=== PATIENT | male | born 1995 | race Caucasian/White ===

== ENCOUNTER 2019-08-02 10:42 | Emergency (ER) | payer OTHER, SELFPAY ==
[2019-08-02 10:43] VITALS: BP 172/72; PULSE 111; RESP 18; TEMP 37.2; O2SAT 99; BMI 33.5
--- NOTE | 2019-08-02 12:49 | RAD_ITS ---
STUDY: X-RAY CHEST REASON FOR EXAM: Male, 23 years old. Reaction to medication. TECHNIQUE: PA and lateral views of the chest. COMPARISON: None. FINDINGS: The lungs are clear and expanded. Scattered calcified granulomas. There is no demonstrated pleural abnormality. Normal size heart. Normal mediastinum and farzaneh. Normal visualized pulmonary arteries. Normal visualized aortic arch and descending thoracic aorta. Normal visualized thoracic spine. Normal visualized ribs, clavicles, and shoulders. There is no demonstrated abnormality of the visualized soft tissue structures of the upper abdomen. RAD/Chest PA and Lateral IMPRESSION: Normal x-ray examination of the chest. Electronically Signed: Kory Rahamn, at 13:51 EDT , Service support ,
--- NOTE | 2019-08-02 12:52 | ED.VIS.GEN ---
History of Present Illness Chief Complaint: General Illness Informant: Patient Onset: Days Context: Gradual Onset Timing: Continuous Narrative: 23-year-old male with history of anabolic steroid abuse presenting with concerns for medication side effects. Patient was recently started on Wellbutrin and Zoloft 2 weeks ago. Since then he has had worsening fatigue, insomnia and erectile dysfunction. He also notes that he is nauseous and his pupils have been dilated. He denies any urinary symptoms, fever or chills. He is very concerned that this might be because he is using the testosterone injections which he did not tell his prescribing doctor about. Denies any homicidal suicidal ideations. He states he still feeling depressed but that has not changed. Denies any auditory or visual hallucinations. Past Medical History - Allergies and Home Meds Allergies/Adverse Reactions: Allergies No Known Allergies Allergy (Verified 08/02/19 10:43) Primary Care Physician: Thomas Hernandez DO [Primary Care Provider] - Past Medical History: - - Depression Surgical History: noncontributory Lives: With Family Smoking Status: Current every day smoker Review of Systems All systems negative except as indicated General: Reports: Sweats Eyes: Reports: - - Dilated pupils Gastrointestinal: Reports: Nausea Psych: Reports: Depression, - - Insomnia. Denies: Suicidal thoughts, Suicidal ideations Physical Exam Vital Signs/Narrative: Vital Signs Temp Pulse Resp BP Pulse Ox 08/02/19 10:43 99 F 111 H 18 172/72 H 99 Inital Vital Signs reviewed: Yes General: Well nourished, Well developed, No Acute Distress Head: Normocephalic, Atraumatic Eyes: Perrl, EOMI, - - Pupils 7 mm and equally reactive to light ENT: Moist mucous membranes, No rhinorrhea Neck: Supple, Nontender Cardiovascular: Regular rhythm, No murmurs, Tachycardia Respiratory: No distress, CTA bilaterally, Chest nontender Abdomen: Soft, Nontender, Nondistended, Normal bowel sounds Back: Nontender, Normal Inspection Extremities: Nontender, No edema Skin: Normal color, No rash Neurological: Alert, Oriented x3, Cranial nerves II-XII grossly intact, Normal Strength, Normal Sensation Psychological: Normal affect, Depressed, - - Denies homicidal or suicidal ideations, denies auditory hallucinations Diagnostic/Tx/Re-eval Chest X-Ray - ED: 2 View, Read by ED Physician, Read by Radiologist, No Acute Disease Clinical Impression(s) from Imaging Studies Chest X-Ray 08/02/19 12:49 IMPRESSION: Normal x-ray examination of the chest. Electronically Signed: Kory Rahman, at 13:51 EDT , Service support , Laboratory Data 08/02/19 08/02/19 08/02/19 13:10 13:10 13:10 WBC 13.6 H RBC 5.81 Hgb 17.6 H Hct 52.5 MCV 90.4 MCH 30.3 MCHC 33.5 RDW Std Deviation 42.8 RDW Coeff of [place] 12.8 Plt Count 297 MPV 9.6 Immature Gran % (Auto) 0.400 Neut % (Auto) 80.3 H Lymph % (Auto) 11.9 L [place] % (Auto) 6.9 Eos % (Auto) 0.2 Baso % (Auto) 0.3 Absolute Neuts (auto) 10.9 H Absolute Lymphs (auto) 1.62 Nucleated RBC % 0 Sodium 139 Potassium 4.2 Chloride 104 Carbon Dioxide 28.0 Anion Gap 7 BUN 20 H Creatinine 1.08 Estim Creat Clear Calc 101.16 Est GFR (MDRD) Af Amer 107 Est GFR (MDRD) Non-Af 88 BUN/Creatinine Ratio 18.5 Glucose 96 Calcium 9.5 Urine Color Urine Clarity Urine pH Ur Specific [place] Urine Protein Urine Glucose (UA) Urine Ketones Urine Occult Blood Urine Nitrite Urine Bilirubin Urine Urobilinogen Ur Leukocyte Esterase Urine RBC Urine WBC Ur Squamous Epith Cells Urine Bacteria Urine Mucus Ethyl Alcohol < 3.0 08/02/19 13:15 WBC RBC Hgb Hct MCV MCH MCHC RDW Std Deviation RDW Coeff of [place] Plt Count MPV Immature Gran % (Auto) Neut % (Auto) Lymph % (Auto) [place] % (Auto) Eos % (Auto) Baso % (Auto) Absolute Neuts (auto) Absolute Lymphs (auto) Nucleated RBC % Sodium Potassium Chloride Carbon Dioxide Anion Gap BUN Creatinine Estim Creat Clear Calc Est GFR (MDRD) Af Amer Est GFR (MDRD) Non-Af BUN/Creatinine Ratio Glucose Calcium Urine Color Yellow Urine Clarity Clear Urine pH 7.0 Ur Specific [place] 1.015 Urine Protein Negative Urine Glucose (UA) Normal Urine Ketones Negative Urine Occult Blood Negative Urine Nitrite Negative Urine Bilirubin Negative Urine Urobilinogen 1 H Ur Leukocyte Esterase 25 H Urine RBC 0 SEEN Urine WBC 0 SEEN Ur Squamous Epith Cells 0 SEEN Urine Bacteria 0 SEEN Urine Mucus 0 SEEN Ethyl Alcohol - Medical Decision Making Patient is evaluated for multiple complaints that is concerning associated with interaction between his newly prescribed antidepressants and anabolic steroid use. Patient stopped using about steroids 2 weeks ago. He does admit to depression but denies any homicidal or suicidal agents. He is physically well-appearing. On initial evaluation patient is tachycardic and hypertensive however this resolves without intervention. Patient is quite anxious upon arrival. He does have a mild leukocytosis but no clear source of infection. I suspect this is reactive as well. Patient does not have a significant electrolyte abnormalities. I did discuss the case with on-call physician who is agreeable to plan for outpatient follow-up and to continue his sertraline and bupropion. I did prevocational/rehabilitation counselor patient that his symptoms are likely combination of side effects from his new medications as well as possible withdrawal symptoms from stopping anabolic steroids. Patient is also evaluated by case management who helped get him a follow-up appointment with his PCP for next week. I do not think patient requires admission for further monitoring at this time. I do believe he is safe to go home with his mother. Patient does seem to have capacity as well as insight. Patient is counseled on signs and symptoms requiring return to the emergency room. Patient verbalizes agreement and understand this plan. Patient discharged home in stable and improved condition. ED Disposition - Plan for ED Patient: Disposition: Home or Assisted Living Diagnosis: Depression Instructions: Depression Referrals: Thomas Hernandez DO [Primary Care Provider] - Additional Instructions: Follow-up with your primary care provider as well as counselor. Symptoms of androgen deficiency are likely to occur after stopping (depression, fatigue, decreased libido, sexual dysfunction) however this can take months to fully resolve. Continue taking the medications prescribed to you. You may take Benadryl at night to help with sleep as well as melatonin. Return to emergency room if you have worsening symptoms or further concerns. Continue to abstain from using anabolic steroids.
[2019-08-02 13:17] LABS: Absolute Lymphocyte Count 1.62 X10^3/uL (0.83-4.51); Absolute Neutrophil Count 10.9 X10^3/uL (2.0-7.7); Basophil# 0.04 X10^3/uL; Basophil% 0.3 % (0-1); Eosinophil# 0.03 X10^3/uL; Eosinophils% 0.2 % (0-5); Hematocrit 52.5 % (40-54); Hemoglobin 17.6 g/dL (13.0-16.5); Lymphocyte # 1.62 X10^3/ul (4.0); Lymphocyte % 11.9 % (19-41); Mean Corp Hgb Conc 33.5 g/dL (32-36); Mean Corpuscular Hgb 30.3 pg (27.0-32.0); Mean Corpuscular Volume 90.4 fL (80-94); Mean Platelet Vol. 9.6 fl (6.2-12.0); Monocyte# 0.94 X10^3/uL; Monocyte% 6.9 % (0-10); NRBC Flagged by Analyzer 0 % (0-5); Neutrophil # 10.94 X10^3/uL (2.7-7.7); Neutrophil % 80.3 % (47-70); Platelet Count 297 K/mm3 (150-450); RBC Distribution Width CV 12.8 % (11.6-14.6); RBC Distribution Width SD 42.8 fl (35.1-43.9); Red Blood Count 5.81 M/mm3 (4.6-6.2); White Blood Count 13.6 K/mm3 (4.4-11.0)
[2019-08-02 13:21] LABS: Bacteria 0 SEEN /hpf (None Seen); Mucous, Urine 0 SEEN /hpf (<or=2+); Red Blood Cells-Urine 0 SEEN /hpf (0-5); Squamous Epithelial Cells - UA 0 SEEN /hpf (0-5); White Blood Cells 0 SEEN /hpf (0-5)
[2019-08-02 13:26] LABS: Color, Urine Yellow (Yellow); Glucose, Dipstick Normal (Normal); Ketone-Dipstick Negative (Negative); Leukocyte Esterase-Dipstick 25 /ul (Negative); Nitrite-Dipstick Negative (Negative); Occult Blood-Urine Negative /ul (Negative); Protein-Dipstick Negative (Negative); Specific Gravity, Urine 1.015 (1.002-1.030); Urine Bilirubin Dipstick Negative (Negative); Urine Clarity Clear (Clear); Urine Urobilinogen 1 mg/dl (Normal)
[2019-08-02 13:32] LABS: Anion Gap 7 (5-15); BUN 20 mg/dL (7-18); BUN/Creat Ratio 18.5 RATIO (10-20); Calcium,Total 9.5 mg/dL (8.5-10.1); Chloride 104 mmol/L (98-107); Creatinine, Serum 1.08 mg/dL (0.70-1.30); EST Glomerular Filtration Rate 88 mL/min (>60); Est Glom Filt Rate - Afr Amer 107 mL/min (>60); Estimated Creatinine Clearance 101.16 ml/min; Glucose 96 mg/dL (74-106); Potassium 4.2 mmol/L (3.5-5.1); Sodium Level 139 mmol/L (136-145)
[2019-08-02 13:43] LABS: Alcohol, Blood (Medical)-Serum < 3.0 mg/dL
[2019-08-02 14:46] VITALS: BP 134/55; PULSE 86; RESP 18; O2SAT 95
--- NOTE | 2019-08-02 15:00 | CM.ED ---
SOCIAL WORK ASSESSMENT INFORMANT: DR. LANDON REASON FOR REFERRAL: MENTAL HEALTH MET WITH PATIENT IN ROOM. INTRODUCED ROLE AND REASON FOR REFERRAL. PATIENT'S MOTHER AT BEDSIDE. PATIENT GAVE PERMISSION FOR THIS WORKER TO SPEAK OPENLY WITH MOTHER PRESENT. PATIENT STATES RECENTLY STARTED BACK ON MEDICATION FOR DEPRESSION AND ANXIETY, IT HAS BEEN 2 WEEKS. PATIENT STATES DID NOT TELL DR. BEASLEY ABOUT THE ANABOLIC STEROIDS HE WAS TAKING. PATIENT STATES HAS NOT BEEN FEELING WELL. MOTHER REPORTS CALLED OFFICE THIS DAY AND WAS ADVISED TO BRING PATIENT TO THE EMERGENCY DEPARTMENT. MOTHER STATES PATIENT HAS BEEN SUFFERING FROM INSOMNIA AND THIS WAS DISCUSSED WITH DR. LANDON. PATIENT REPORTS HAS ALREADY SCHEDULED AN APPOINTMENT WITH COUNSELOR WHO HE HAS SEEN IN THE PAST. EDUCATION AND SUPPORT PROVIDED TO PATIENT AND MOTHER. PATIENT REQUESTING ASSISTANCE WITH GETTING FOLLOW UP APPOINTMENT SCHEDULED WITH PRIMARY CARE. CALL TO DR. BEASLEY'S OFFICE. EARLIEST APPOINTMENT OFFERED FOR PATIENT-TUESDAY, 08/10/19 AT 7:40A. PATIENT IN AGREEMENT WITH APPOINTMENT. MOTHER STATES THEY WILL FOLLOW UP WITH OFFICE ON TUESDAY. PATIENT PROVIDED WITH INFORMATION ON THE [facility]. NO FURTHER NEEDS. DR. LANDON UPDATED ON THE ABOVE. PLAN: HOME WITH RESOURCES PROVIDED. Shelley ISAAC MSW, RESIDENT CAREGIVER.
== END 2019-08-02 15:35 | disposition home or self-care (01) ==
PROVIDERS: Emergency Provider Emergency Medicine; Family Provider Student in an Organized Health Care Education/Training Program; PCP Student in an Organized Health Care Education/Training Program
DX: F32.9 Major depressive disorder, single episode, unspecified (principal); Z79.899 Other long term (current) drug therapy; F17.200 Nicotine dependence, unspecified, uncomplicated
CPT/HCPCS: 71046; 80048; 80320; 81001; 85025; 99282; G0480